=== PATIENT | female | born 1995 | race African-American/Black ===

== ENCOUNTER 2022-05-01 23:55 | Emergency (ER) | payer SELFPAY ==
[~2022-05-01] VITALS: Ht 162.6 cm; Wt 75.0 kg
[2022-05-02 00:05] VITALS: BP 108/74
[2022-05-02] MEDS ORDERED: IBUPROFEN 600MG TABLET PO ONE (00:15)
== END 2022-05-02 00:25 | disposition left against medical advice (07) ==
LOC: ER 23:55
DX: R51.9 Headache, unspecified (principal); R07.89 Other chest pain; Y08.89XA Assault by other specified means, initial encounter; Y93.89 Activity, other specified; Y92.89 Other specified places as the place of occurrence of the external cause; Y99.8 Other external cause status
CPT/HCPCS: 93005; 99283

== ENCOUNTER 2022-09-08 18:57 | Emergency (ER) | payer SELFPAY ==
[~2022-09-08] VITALS: Ht 162.6 cm; Wt 71.1 kg
[2022-09-08 19:09] VITALS: BP 146/80
[2022-09-08] MEDS: SODIUM CHLORIDE 0.9% 1,000 ML IV ONE (21:51)
[2022-09-08 21:58] LABS: BASOPHILS % 0.3 % (0.0-2.0); EOSINOPHILS % 1.6 % (0.0-5.0); HEMOGLOBIN. 12.5 g/dL (12.0-16.0); LYMPHOCYTES % 22.6 % (20.0-50.0); MEAN CORPUSCULAR HEMOGLOBIN 27.9 pg (28.0-32.0); MEAN CORPUSCULAR VOLUME 82.6 fL (81.0-99.0); MEAN PLATELET VOLUME 8.2 fl (7.4-10.4); MONOCYTES % 8.4 % (2.0-8.0); NEUTROPHILS % 67.1 % (40.0-76.0); PLATELET 238 x1000/uL (130-400); RED BLOOD CELL COUNT 4.48 mill/uL (4.2-5.4); RED CELL DISTRIBUTION WIDTH 15.6 % (11.6-14.6)
[2022-09-08 22:04] LABS: CHLORIDE 105 mEq/L (98-107)
[2022-09-08 22:14] LABS: B-HCG QUANTITATIVE < 1 mIU/mL (<3)
[2022-09-09] MEDS ORDERED: IBUP-2029 MT (02:09)
== END 2022-09-08 23:04 | disposition home or self-care (01) ==
LOC: ER 18:57
DX: D25.9 Leiomyoma of uterus, unspecified (principal)
CPT/HCPCS: 36415; 76830; 76856; 80048; 84702; 85025; 86850; 86900; 86901; 96360; 99284; J7030

== ENCOUNTER 2022-09-09 01:55 | Emergency (ER) | payer SELFPAY ==
[~2022-09-09] VITALS: Ht 162.6 cm; Wt 59.8 kg
[2022-09-09 02:00] VITALS: BP 130/76
[2022-09-09] MEDS ORDERED: IBUP-2029 MT (02:09)
== END 2022-09-09 02:35 | disposition home or self-care (01) ==
LOC: ER 02:00
DX: N93.9 Abnormal uterine and vaginal bleeding, unspecified (principal); D25.9 Leiomyoma of uterus, unspecified
CPT/HCPCS: 99283

== ENCOUNTER 2022-09-09 04:39 | Emergency (ER) | payer SELFPAY ==
[~2022-09-09] VITALS: Ht 162.6 cm; Wt 79.0 kg
[~2022-09-09 04:39] MED LIST: IBUP-2029 MT
[2022-09-09 04:51] VITALS: BP 126/64
== END 2022-09-09 05:02 | disposition home or self-care (01) ==
LOC: ER 04:44
DX: N93.9 Abnormal uterine and vaginal bleeding, unspecified (principal); D25.9 Leiomyoma of uterus, unspecified
CPT/HCPCS: 99283